=== PATIENT | male | born 1950 | race Caucasian/White ===

== ENCOUNTER 2018-09-17 05:23 | Day surgery (SDC) | payer OTHER ==
[~2018-09-17] VITALS: Ht 177.8 cm; Wt 79.4 kg
[~2018-09-17 05:23] MED LIST: ADVIL PM CAPLE1 EACH PO; BIOTIN5000 MCG PO; GLUCOSAMINE CH1 EAC2 PO; MULTI VITAMIN1 EACH PO; VITAMIN E400 UNI4 PO
[2018-09-17 07:27] VITALS: BP 147/80
--- NOTE | 2018-09-17 08:47 | H ---
[facility] [place] [address] HISTORY AND PHYSICAL Name: DEBORA BARBER Room #: 150-3 [facility]..#: [id number] Admission: 09/17/18 ������������������ Attend Phys: Seth Almaraz MD Discharge: ������������������ Date of : 48 Report #: [id number] THIS REPORT FOR: //name// CC: FAM unknown Gal Almaraz DATE OF SERVICE: 09/17/2018 DATE OF SURGERY: 09/17/2018 This is a patient of Dr. Gal Sunshine and Dr. Boogie Szymanski. CHIEF COMPLAINT: Right groin discomfort and a bulge. HISTORY OF PRESENT ILLNESS: The patient is a 68-year-old white male who recently began noticing a bulge in the right groin. He denies significant discomfort. No changes in bowel or bladder habits. He has a history of previous right inguinal hernia repair in 1966 and a previous left inguinal hernia repair with mesh at the outpatient center at [facility] in 2010. He was seen by his primary care physician, Dr. Gal Sunshine who recommended surgical consultation. The patient's is a former patient of mine who I performed a laparoscopic appendectomy on her in the past. PAST MEDICAL HISTORY: Hyperlipidemia, gastroesophageal reflux disease, anxiety disorder, acne rosacea, colon polyps removed endoscopically, diverticulosis. PAST SURGICAL HISTORY: Appendectomy, right inguinal hernia repair in 1966, nasal septoplasty , hernia repair 02/2011, left hip surgery 03/2012. MEDICATIONS: Atorvastatin 20 mg p.o. every day, Viagra p.r.n., terbinafine. ALLERGIES: No known drug allergies. FAMILY HISTORY: Noncontributory. SOCIAL HISTORY: Quit smoking in 1979. He is . He has children. He is a retired [employer] consultant. Drinks alcohol occasionally. REVIEW OF SYSTEMS: Pertinent positives as above. Full review of systems otherwise negative. PHYSICAL EXAMINATION: GENERAL: Well-developed, well-nourished white male in no acute distress. VITAL SIGNS: Stable. He is afebrile. Height is 69 inches, weight is 178 pounds, BMI of 26.3. [address] [address] HISTORY AND PHYSICAL Name: DEBORA BARBER Room #: 150-3 [facility]#: [id number] Admission: 09/17/18 ������������������ Attend Phys: Seth Almaraz MD Discharge: ������������������ Date of : 48 Report #: [id number] HEENT: Sclerae nonicteric. Mucous membranes moist and pink. There is no adenopathy. LUNGS: Clear to auscultation bilaterally. Normal excursion. CARDIOVASCULAR: Regular rate and rhythm. No murmurs, S3, S4. No PMI. ABDOMEN: Soft, flat, nontender, no palpable mass, no organomegaly. Healed right lower quadrant appendectomy incision scar, which does extend down into the inguinal ligament area. There is a healed left inguinal hernia incision scar. There is a palpable recurrent right inguinal hernia. GENITOURINARY: Normal scrotum, phallus and testes. EXTREMITIES: No clubbing, cyanosis or edema. NEUROLOGIC: Intact with a clear mental status. IMPRESSION: A 68-year-old white male with a recurrent right inguinal hernia. I fully discussed with the patient the diagnosis, prognosis, and treatment options. He states he understand and wishes to proceed with surgery. PLAN: We will perform a recurrent right inguinal hernia repair with mesh under local IV sedation as an outpatient at [facility]. The procedure, its risks, benefits and possible complications including use of mesh fully discussed with the patient. He states he understands and agrees to proposed surgery. ��������������������������������������������� <ELECTRONICALLY SIGNED> ���������������������������������������� By: Seth Almaraz MD ��������������������������������������������� 09/17/18 0847 [id number] Seth Almaraz MD /nt
[2018-09-17] MEDS ORDERED: NORCO 5-325 TA1 EAC1 PO (08:49)
[2018-09-17 10:54] VITALS: BP 147/80
--- NOTE | 2018-09-17 11:50 | O ---
[facility] [place] [address] OPERATIVE REPORT Name: DEBORA BARBER Room #: 150-3 [facility]..#: [id number] Admission: 09/17/18 ������������������ Attend Phys: Seth Almaraz MD Discharge: ������������������ Date of : 48 Report #: [id number] THIS REPORT FOR: //name// CC: Gal Almaraz DATE OF SERVICE: 09/17/[address] Seth Almaraz, Dr. Gal Sunshine. PREOPERATIVE DIAGNOSIS: Recurrent right inguinal hernia. POSTOPERATIVE DIAGNOSIS: Recurrent right inguinal hernia. PROCEDURE: Recurrent right inguinal hernia repair with Prolene hernia system mesh. SURGEON: Seth Almaraz MD ANESTHESIA: Local IV sedation. DESCRIPTION OF PROCEDURE: The patient was brought to the operating room and placed on operative table in the supine position. Sequential compression devices were in place for DVT prophylaxis. There was no indication for preoperative antibiotics. The patient underwent IV sedation. The right inguinal area was prepped and draped in a sterile fashion. Skin and subcutaneous tissue were then infiltrated with 0.5% Marcaine and 1% Xylocaine in a 1:1 mixture. Right inguinal skin incision was then performed using #10 scalpel blade. Hemostasis obtained using electrocautery. Dissection was carried down through subcutaneous tissue to the external oblique fascia, which was dissected free from the previous surgery scar tissue. I then incised the external oblique fascia with a knife and opened carefully with the Metzenbaum scissors. The adhesions within the inguinal canal were carefully dissected free using the electrocautery and Metzenbaum scissors. I was able to dissect free the cord and it was elevated up and held in place with a Lafitte drain. A cord lipoma was identified, dissected free, clamped, excised and tied and sent as specimen to pathology. There was no evidence of an indirect inguinal hernia sac. The floor was inspected and there was a moderate-sized direct inguinal hernia defect. The hernia sac was dissected free from the cord and the floor and opened using the electrocautery above the level of the floor. The hernia sac was then reduced back into the preperitoneal space. The preperitoneal space was then developed and an extended Prolene hernia system mesh was then inserted through the floor and the underlay patch was then deployed into the preperitoneal space. The floor was then tightened around the connector using running 2-0 Prolene two-layer shouldice repair. The overlay patch was then [address] [address] OPERATIVE REPORT Name: DEBORA BARBER Room #: 150-3 [facility]..#: [id number] Admission: 09/17/18 ������������������ Attend Phys: Seth Almaraz MD Discharge: ������������������ Date of : 48 Report #: [id number] deployed into the inguinal canal and it was secured at the pubic tubercle with the same running 2-0 Prolene suture. It was then secured superiorly at the connector using simple interrupted 2-0 Vicryl sutures. The mesh was split, wrapped around the cord, secured to the inguinal ligament with simple interrupted 2-0 Vicryl suture. The cord was then returned to the canal intact. The external oblique fascia was then closed using running 2-0 Vicryl suture. Bhavya fascia was then reapproximated using 3 simple interrupted 2-0 chromic sutures. The skin then closed with a running 4-0 subcuticular Vicryl stitch. Wound was then dressed with Mastisol, 1/2-inch Steri-Strips cut in half, Telfa, 4 x 4 gauze, sponge and tape. The patient was then awakened and taken to the recovery room awake, alert and in good condition. Estimated blood loss was approximately 5 mL and the patient tolerated the procedure well. All sponge, lap and instrument counts correct x 2. ��������������������������������������������� <ELECTRONICALLY SIGNED> ���������������������������������������� By: Seth Almaraz MD ��������������������������������������������� 09/17/18 1150 1038 1100 Seth Almaraz MD /nt
--- NOTE | 2018-09-18 16:06 | PATH ---
[facility] [address] [place] [address] PATHOLOGY RPT PROCEDURE Name: LIZANDRO BARBER Room #: DEP [facility] M.R.#: [id number] ������������������ Admission: 09/17/18 ������������������ Date of : 48 Discharge: 09/17/18 Report #: [id number] Path Case #: [id number] [facility] Accession Number: [id number] . 01 Material submitted: . inguinal area - RIGHT INGUINAL CORD LIPOMA. Modifiers: right . 01 Clinical history: . Right inguinal hernia . 02 Diagnosis: Mature adipose, right inguinal cord lipoma, resection: - Compatible with a lipoma. (IUV:johnathan; 09/18/2018) QMS/09/18/2018 . 02 Electronically signed: . Maricruz Thomas MD, Pathologist NPI- [id number] . 01 Gross description: . Received in formalin labeled "Lizandro Barber, right inguinal cord lipoma," is a 3.6 x 2.5 x 1.6 cm aggregate of yellow lobulated tissue segments admixed with scant harvey-nixon fibromembranous tissue. Serial sectioning reveals pale yellow cut surfaces. Psychiatry Instructor tissue is submitted in cassette A1. (DAC; 09/17/2018) XDC/XDC . 02 Pathologist provided ICD-10: D17.6 . 02 CPT . 617780 Specimen Comment: A courtesy copy of this report has been sent to Specimen Comment: [phone], . Specimen Comment: Report sent to / DR ROSS Performed at: [address], [place], [place] [id number] MD Manolo Platt MD Phone: [phone] Performed at: [address] [id number] MD Maricruz Thomas MD Phone: [phone]
== END 2018-09-17 11:49 | disposition home or self-care (01) ==
LOC: OR 05:23 → TBA 05:23 → OR 07:34
DX: K40.91 Unilateral inguinal hernia, without obstruction or gangrene, recurrent (principal); D17.6 Benign lipomatous neoplasm of spermatic cord; E78.5 Hyperlipidemia, unspecified; K21.9 Gastro-esophageal reflux disease without esophagitis; F41.9 Anxiety disorder, unspecified; Z86.010 Personal history of colon polyps; Z87.19 Personal history of other diseases of the digestive system; Z90.49 Acquired absence of other specified parts of digestive tract; Z98.890 Other specified postprocedural states; Z79.899 Other long term (current) drug therapy; Z87.891 Personal history of nicotine dependence
CPT/HCPCS: 50010; 50101; 50386; 50417; 54111; 56524; 56526; 56528; 62110; 62900; 70005